=== PATIENT | male | born 1965 | race Caucasian/White ===

== ENCOUNTER 2017-07-16 18:18 | Emergency (ER) | payer OTHER ==
[~2017-07-16] VITALS: Ht 170.2 cm; Wt 91.2 kg
[2017-07-16 18:22] VITALS: Ht 170.2 cm; Wt 91.2 kg
[2017-07-16 18:45] VITALS: BP 142/79
== END 2017-07-16 18:45 | disposition home or self-care (01) ==
LOC: ED 18:18
DX: L29.9 Pruritus, unspecified (principal); L53.9 Erythematous condition, unspecified; I10 Essential (primary) hypertension

== ENCOUNTER 2017-08-21 12:57 | Emergency (ER) | payer OTHER ==
[~2017-08-21] VITALS: Ht 170.2 cm; Wt 87.5 kg
[2017-08-21 13:03] VITALS: Ht 170.2 cm; Wt 87.5 kg
[2017-08-21 14:23] LABS: AMPHETAMINE QUAL UR NONE DETECTED (NEG <=1000)
[2017-08-21 14:24] LABS: BASOPHIL % 0 % (0-2); PLATELET COUNT 98 x10^3mcL (130-400); RED CELL DISTRIBUTION WIDTH 15.8 % (11.5-14.5)
[2017-08-21 14:27] LABS: CALCIUM 7.4 mg/dL (8.5-10.1); CHLORIDE SERUM 94 mmol/L (98-107); CREATININE SERUM 0.9 mg/dL (0.7-1.3); GFR1 > 60 mL/min; GLUCOSE SERUM 106 mg/dL (74-106); POTASSIUM SERUM 3.3 mmol/L (3.5-5.1); SODIUM SERUM 131 mmol/L (136-145)
[2017-08-21 14:29] LABS: ALKALINE PHOSPHATASE 384 U/L (46-116); ALT/SGPT 72 U/L (16-63); AST/SGOT 45 U/L (15-37); BILIRUBIN TOTAL 0.9 mg/dL (0.20-1.00); MAGNESIUM 1.9 mg/dL (1.8-2.4); URIC ACID 5.2 mg/dL (3.5-7.2)
[2017-08-21 14:30] LABS: ALBUMIN 2.4 g/dL (3.4-5.0)
[2017-08-21 14:43] LABS: FREE T4 1.47 ng/dL (0.76-1.46); FREE THYROXINE INDEX 2.7 ug/dL (1.4-4.5); T3 TOTAL 0.93 ng/mL
[2017-08-21 16:50] VITALS: BP 122/76
== END 2017-08-21 16:50 | disposition home or self-care (01) ==
LOC: ED 12:57
PROVIDERS: Emergency Medicine
DX: R00.0 Tachycardia, unspecified (principal); I10 Essential (primary) hypertension
CPT/HCPCS: 83880; 84439; J7030; Q0092; Q9967

== ENCOUNTER 2017-09-09 18:30 | Observation (INO) | payer OTHER ==
[~2017-09-09] VITALS: Ht 170.2 cm; Wt 88.0 kg
[~2017-09-09 18:30] MED LIST: BIAXIN FILMTAB500 MG PO; FUROSEMIDE20 MG PO; INDOMETHACIN25 MG PO; LAC PO; LEVAQUIN750 MG PO; METOPROLOL SUCC25 M2 PO; RAMIPRIL2.5 MG; SULFATRIM 800-120 ML PO; TRIUMEQ1 TAB PO
[2017-09-09 18:34] VITALS: Ht 170.2 cm; Wt 88.0 kg
[2017-09-09 19:43] LABS: CALCIUM 7.2 mg/dL (8.5-10.1); CARBON DIOXIDE 21.4 mmol/L (21-32); CHLORIDE SERUM 100 mmol/L (98-107); CREATININE SERUM 0.9 mg/dL (0.7-1.3); GFR1 > 60 mL/min; GLUCOSE SERUM 85 mg/dL (74-106); SODIUM SERUM 133 mmol/L (136-145)
[2017-09-09 19:46] LABS: PLATELET COUNT 37 x10^3mcL (130-400); RED CELL DISTRIBUTION WIDTH 19.4 % (11.5-14.5)
[2017-09-09 19:48] LABS: ALKALINE PHOSPHATASE 325 U/L (46-116); ALT/SGPT 47 U/L (16-63); AST/SGOT 41 U/L (15-37)
[2017-09-09 19:49] LABS: ALBUMIN 1.9 g/dL (3.4-5.0); TOTAL PROTEIN, SERUM 4.7 g/dL (6.4-8.2)
[2017-09-09] MEDS ORDERED: TRIUMEQ1 TAB PO (19:57)
[2017-09-09 20:35] LABS: BAND NEUTROPHIL 1 % (0-10); BASOPHIL 0 % (0-2); MONOCYTE 3 % (0-7); SEGMENTED NEUTROPHILS 84 % (37-75)
[2017-09-09 20:36] LABS: rbc morphology (normal/abnorm) ABNORMAL (NORMAL)
[2017-09-09 20:37] LABS: PLATELET MORPHOLOGY PLATELETS DECREASED
[2017-09-09] MEDS ORDERED: METOPROLOL TART25 M1 PO ×2 (20:43→23:15)
[2017-09-09 20:50] LABS: AMYLASE 38 U/L (25-115); LIPASE 124 IU/L (73-393)
[2017-09-09 20:51] LABS: CHOLESTEROL 257 mg/dL (<200); CHOLESTEROL/HDL RATIO 42.8; HDL CHOLESTEROL 6 mg/dL (40-60); TRIGLYCERIDES 545 mg/dL (<150)
[2017-09-09 20:57] LABS: IRON 46 ug/dL (65-170); TOTAL IRON BINDING CAPACITY 259 ug/dL (250-450)
[2017-09-09 20:58] LABS: FREE T4 1.07 ng/dL (0.76-1.46); FREE THYROXINE INDEX 1.9 ug/dL (1.4-4.5); T3 TOTAL 0.46 ng/mL; T4(THYROXINE) 4.8 ug/dL (4.7-13.3)
[2017-09-09 21:17] LABS: RED BLOOD CELLS 4.56 M/mm3 (4.52-5.90)
[2017-09-09 21:34] VITALS: BP 99/76
[2017-09-09 22:12] VITALS: BP 99/76
[2017-09-09] MEDS ORDERED: TOPROL XL25 MG PO (23:08)
[2017-09-09 23:58] LABS: microscopic required? NO
[2017-09-10 00:04] LABS: UA SPECIFIC GRAVITY >=1.030 (1.005-1.035); urine erythrocyte NEGATIVE (NEGATIVE)
[2017-09-10 00:16] LABS: AMPHETAMINE QUAL UR NONE DETECTED (NEG <=1000)
[2017-09-10 02:26] LABS: RED CELL DISTRIBUTION WIDTH 19.2 % (11.5-14.5)
[2017-09-10 02:49] LABS: BAND NEUTROPHIL 10 % (0-10); BASOPHIL 0 % (0-2); METAMYELOCTE 2 % (0-2); MONOCYTE 4 % (0-7); SEGMENTED NEUTROPHILS 76 % (37-75); rbc morphology (normal/abnorm) ABNORMAL (NORMAL)
[2017-09-10 02:52] LABS: target cell (codocyte) 2+
[2017-09-10 05:13] VITALS: BP 106/56
[2017-09-10 05:24] LABS: PLATELET COUNT 46 x10^3mcL (130-400)
[2017-09-10 06:45] LABS: CALCIUM 7.2 mg/dL (8.5-10.1); CARBON DIOXIDE 24.5 mmol/L (21-32); CHLORIDE SERUM 101 mmol/L (98-107); CREATININE SERUM 0.8 mg/dL (0.7-1.3); GFR1 > 60 mL/min; GLUCOSE SERUM 80 mg/dL (74-106); PHOSPHOROUS 2.9 mg/dL (2.5-4.9); POTASSIUM SERUM 4.2 mmol/L (3.5-5.1); SODIUM SERUM 133 mmol/L (136-145)
[2017-09-10 07:20] LABS: RED CELL DISTRIBUTION WIDTH 21.4 % (11.5-14.5)
[2017-09-10 07:26] LABS: PLATELET COUNT 41 x10^3mcL (130-400)
[2017-09-10 10:15] VITALS: BP 113/62
[2017-09-10 10:54] LABS: BAND NEUTROPHIL 12 % (0-10); BASOPHIL 0 % (0-2); METAMYELOCTE 2 % (0-2); MONOCYTE 3 % (0-7); SEGMENTED NEUTROPHILS 73 % (37-75); rbc morphology (normal/abnorm) ABNORMAL (NORMAL)
[2017-09-10 12:59] VITALS: BP 92/49
[2017-09-10 13:41] VITALS: BP 92/49
[2017-09-10 14:22] LABS: PLATELET COUNT 54 x10^3mcL (130-400)
[2017-09-10 14:54] LABS: BAND NEUTROPHIL 1 % (0-10); BASOPHIL 0 % (0-2); MONOCYTE 1 % (0-7); SEGMENTED NEUTROPHILS 89 % (37-75)
[2017-09-10 14:55] LABS: PLATELET MORPHOLOGY PLATELETS DECREASED; rbc morphology (normal/abnorm) ABNORMAL (NORMAL)
== END 2017-09-10 16:11 | disposition home or self-care (01) | DRG 377 ==
LOC: ED 18:30 → DU 20:14 → MU 20:14 → DU 20:14 → MU 09-10 10:55
PROVIDERS: Emergency Medicine; Family Medicine
PROC: 30233N1 Transfusion of Nonautologous Red Blood Cells into Peripheral Vein, Percutaneous Approach (ICD-10-PCS; principal; 2017-09-10)
DX: K92.2 Gastrointestinal hemorrhage, unspecified (principal); B20 Human immunodeficiency virus [HIV] disease; E43 Unspecified severe protein-calorie malnutrition; C83.30 Diffuse large B-cell lymphoma, unspecified site; E87.1 Hypo-osmolality and hyponatremia; D50.0 Iron deficiency anemia secondary to blood loss (chronic); E78.5 Hyperlipidemia, unspecified; I10 Essential (primary) hypertension; E03.9 Hypothyroidism, unspecified; E66.9 Obesity, unspecified; Z68.28 Body mass index [BMI] 28.0-28.9, adult
CPT/HCPCS: 83880; 84439; 94150; 97110-GP; G0378; J1956; J2916; J7030; J7040; J7620; P9016; Q0163

== ENCOUNTER 2017-09-11 19:49 | Emergency (ER) | payer OTHER ==
[~2017-09-11] VITALS: Ht 170.2 cm; Wt 88.0 kg
[~2017-09-11 19:49] MED LIST changes: +METOPROLOL TART25 M1 PO; +TOPROL XL25 MG PO
[2017-09-11 19:53] VITALS: Ht 170.2 cm; Wt 88.0 kg
[2017-09-11 22:51] VITALS: BP 110/68
== END 2017-09-11 22:52 | disposition home or self-care (01) ==
LOC: ED 19:49
DX: F41.1 Generalized anxiety disorder (principal); C85.90 Non-Hodgkin lymphoma, unspecified, unspecified site; I10 Essential (primary) hypertension
CPT/HCPCS: J2060